=== PATIENT | female | born 1985 | race Caucasian/White ===

== ENCOUNTER 2021-07-17 15:02 | Emergency (ER) | payer OTHER ==
[~2021-07-17 15:02] MED LIST: COLACE 100MG C100 MG PO; DIABETA 5 MG TAB5 MG PO; HUMALOG MI100 UNIT/2 SQ; HUMALOG100 UNIT/1 SQ; HUMULIN N100 UNIT/1 SQ; IBUPROFEN600 MG PO; NIFEDIPINE ER30 M1 PO; NORCO 5-325 TA1 EACH PO; PRENATAL VITAM1 EAC8 PO; VISTARIL25 MG PO; ZANTAC 150 MG150 MG PO; ZYRTEC10 MG PO
== END 2021-07-17 15:25 | disposition left against medical advice (07) ==
LOC: ER1 15:02
DX: Z53.21 Procedure and treatment not carried out due to patient leaving prior to being seen by health care provider (principal)